=== PATIENT | female | born 1950 | race Caucasian/White ===

== ENCOUNTER 2016-08-18 11:12 | Emergency (ER) | payer MEDICARE, OTHER | END 2016-08-18 12:15 | disposition home or self-care (01) | DX: G51.0 Bell's palsy (principal); I10 Essential (primary) hypertension; E78.00 Pure hypercholesterolemia, unspecified; E11.9 Type 2 diabetes mellitus without complications; Z79.4 Long term (current) use of insulin; Z79.82 Long term (current) use of aspirin ==

== ENCOUNTER 2022-07-27 12:02 | Emergency (ER) | payer MEDICARE, OTHER ==
--- NOTE | 2022-07-27 13:11 | ED Physician Documentation ---
History of Present Illness - Stated complaint Stated Complaint: COUGH/FEVER - Chief complaint Chief Complaint: Resp - Additonal information Additional information: History provided by patient. Reliable historian. 72-year-old female who does have a history of previous myocardial infarction status post 5 stents in February of this year presents the emergency department for evaluation of cough that began yesterday and low-grade temperature elevation. Patient reports a T-max of 98.2 but states that soft fever for her as her temperature typically is 96 degrees. She is denying chest pain or dyspnea. No nausea or vomiting. No leg swelling. She states that she is here simply to have the cough addressed as she had to sleep in the living room last night as the cough kept her up. She is not vaccinated for COVID or the flu. Review of Systems Constitutional: reports: Fever, Fatigue Eyes: reports: Reviewed and negative Ears: reports: Reviewed and negative Nose: reports: Congestion Throat: reports: Reviewed and negative Cardiac: reports: Reviewed and negative Respiratory: reports: Reviewed and negative GI: reports: Reviewed and negative : reports: Reviewed and negative Skin: reports: Reviewed and negative Musculoskeletal: reports: Reviewed and negative Neurologic: reports: Reviewed and negative PD PAST MEDICAL HISTORY - Past Medical History Cardiovascular: Hypertension, High cholesterol Respiratory: None Endocrine/Autoimmune: Type 2 diabetes GI: None : None HEENT: None Psych: Depression Musculoskeletal: Other Derm: None - Past Surgical History Past Surgical History: Yes Ortho: Other HEENT: Tonsil/Adenoidectomy - Present Medications Home Medications: Ambulatory Orders Medication Instructions Recorded Confirmed Aspirin [Alesia Chewable Aspirin] 325 mg PO DAILY 06/23/14 04/20/18 Losartan/Hydrochlorothiazide 1 tab PO DAILY 06/23/14 04/20/18 [Losartan-Hctz 100-12.5 mg Tab] Acyclovir 800 mg PO 5XD 10 Days tablet 08/18/16 04/20/18 Gabapentin 0 mg PO TID 08/18/16 04/20/18 Ibuprofen [Motrin] 600 mg PO BID 08/18/16 04/20/18 Insulin Glargine [Lantus] 18 units DAILY 08/18/16 04/20/18 amLODIPine [Norvasc] 0 mg PO ONCE 08/18/16 04/20/18 FLUoxetine [PROzac] 1 cap PO DAILY 04/20/18 04/20/18 Benzonatate [Tessalon] 200 mg PO TID PRN #20 cap 07/27/22 - Allergies Allergies/Adverse Reactions: Allergies Allergy/AdvReac Type Severity Reaction Status Date / Time Beta-Blockers Allergy Intermediate Respiratory Verified 08/18/16 11:29 (Beta-Adrenergic Bloc diltiazem Allergy Mild Rash Verified 08/18/16 11:29 - Social History Does the pt smoke?: No Smoking Status: Never smoker Does the pt drink ETOH?: Yes Does the pt have substance abuse?: No - Immunizations Immunizations are current?: Yes Immunizations: TDAP current <10years - POLST Patient has POLST: No PD ED PE NORMAL - General General: Alert and oriented X 3, No acute distress, Well developed/nourished - HEENT HEENT: Atraumatic, Ears normal - Neck Neck: Supple, no meningeal sign, No adenopathy - Cardiac Cardiac: RRR, No murmur - Respiratory Respiratory: No respiratory distress, Clear bilaterally - Abdomen Abdomen: Normal bowel sounds, Soft - Back Back: No spinal TTP - Derm Derm: Normal color, No rash - Neuro Neuro: Alert and oriented X 3, 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 parapertussis DNA (PCR) NOT DETECTED Nasal Coronavir 229E PCR NOT DETECTED Nasal Coronavir HKU1 PCR NOT DETECTED Nasal Coronavir NL63 PCR NOT DETECTED Nasal Coronavir OC43 PCR NOT DETECTED Nasal Enterovir/Rhinovir PCR DETECTED A Nasal Influenza B PCR NOT DETECTED Nasal Influenza A PCR NOT DETECTED Nasal Parainfluen 1 PCR NOT DETECTED Nasal Parainfluen 2 PCR NOT DETECTED Nasal Parainfluen 3 PCR NOT DETECTED Nasal Parainfluen 4 PCR NOT DETECTED Nasal RSV (PCR) NOT DETECTED Nasal B.pertussis DNA PCR NOT DETECTED Nasal C.pneumoniae (PCR) NOT DETECTED Herbert Human Metapneumo PCR NOT DETECTED Nasal M.pneumoniae (PCR) NOT DETECTED Nasal SARS-CoV-2 (PCR) NOT DETECTED - Rads (name of study) cxr Radiology: Final report received (Normal 2 view chest x-ray) PD Medical Decision Making - ED course Complexity details: reviewed results, re-evaluated patient, considered differential, d/w patient, d/w family ED course: 72-year-old female presents to the emergency department for evaluation of cough low-grade temperature elevations that began yesterday. She reports she typically runs a low temperature but was found that she was up to 98.2 which she describes as a fever. She has had a productive cough. No chest pain or shortness of air. No nausea or vomiting. No fevers. Does have a history of myocardial infarction status post stent placement x5 in February of this last year. Patient is denying any dyspnea chest pain or chest discomfort therefore EKG and further laboratory testing was deferred On exam she appears well without respiratory distress. Cardiopulmonary auscultation was unremarkable. Room air saturations 96%. My interpretation of the x-ray as well as that of the radiologist is that there is no acute findings to suggest pneumonia, pneumothorax or pleural effusion. Heart size was normal. Respiratory PCR has resulted positive for rhinovirus. The patient's biggest area of concern is that she has a cough which prevented her from sleeping last night. In order to help with the cough I am going to send a prescription for Tessalon Perles to the her preferred pharmacy. We discussed routine care of viral upper respiratory infections as well as emergent return precautions. Departure - Departure Disposition: 01 Home, Self Care Clinical Impression: Rhinovirus infection, Viral URI with cough Condition: Stable Record reviewed to determine appropriate education?: Yes Instructions: ED Viral Syndrome Prescriptions: Benzonatate [Tessalon] 200 mg PO TID PRN #20 cap PRN Reason: Cough Comments: Radha the chest x-ray today is normal and does not show any findings to suggest a pneumonia. Your viral testing is positive for rhinovirus. This is the cause of the common cold. I expect that you will have a cough for the better part of the next week. In order to reduce the severity of the cough I have sent prescription for Tessalon Perles to the [facility] in [place]. Also recommend that you stay well-hydrated. A teaspoon of honey every 4-6 hours can also coat the throat and reduce cough. Please discuss this ED visit with your primary care doctor. Reasons to return to the ER would be worsening cough despite 7 to 10 days of symptoms, development of any fevers after a week of illness, any severe respiratory distress or chest pain.
--- NOTE | 2022-07-27 13:27 | XRAY Report ---
PROCEDURE: Chest 2 View X-Ray INDICATIONS: cough TECHNIQUE: 2 views of the chest were acquired. COMPARISON: 09/08/2015 FINDINGS: Surgical changes and devices: None. Lungs and pleura: No pleural effusions or pneumothorax. Lungs are clear. Mediastinum: Mediastinal contours are normal. Heart size is normal. Bones and chest wall: No suspicious bony abnormalities. Soft tissues appear unremarkable. IMPRESSION: Normal two-view chest x-ray Reviewed by: Serge Charles MD on 07/27/2022 12:25 PM [facility] Approved by: Serge Charles MD on 07/27/2022 12:25 PM [facility] Station ID: [id number]
[2022-07-27 13:43] LABS: B. PARAPERTUSSIS- RESP PCR PAN NOT DETECTED; B. PERTUSSIS- RESP PCR PANEL NOT DETECTED; C. PNEUMONIAE- RESP PCR PANEL NOT DETECTED; CORONAVIRUS 229E-RESP PCR NOT DETECTED; CORONAVIRUS HKU1-RESP PCR NOT DETECTED; CORONAVIRUS NL63-RESP PCR NOT DETECTED; CORONAVIRUS OC43-RESP PCR NOT DETECTED; HUMAN METAPNEUMOVIRUS NOT DETECTED; INFLUENZA A- RESP PCR PANEL NOT DETECTED; M. PNEUMONIAE- RESP PCR PANEL NOT DETECTED; PARAINFLUENZA VIRUS 4 NOT DETECTED; RHINOVIRUS/ENTEROVIRUS DETECTED; RSV- RESP PCR PANEL NOT DETECTED; SARS-CoV-2 -RESP PCR PANEL NOT DETECTED
[2022-07-27 13:44] LABS: INFLUENZA B - RESP PCR PANEL NOT DETECTED; PARAINFLUENZA VIRUS 1 NOT DETECTED; PARAINFLUENZA VIRUS 2 NOT DETECTED; PARAINFLUENZA VIRUS 3 NOT DETECTED
[2022-07-27 14:14] VITALS: BP 158/71
== END 2022-07-27 14:16 | disposition home or self-care (01) ==
LOC: ED 12:02
DX: J06.9 Acute upper respiratory infection, unspecified (principal); B97.89 Other viral agents as the cause of diseases classified elsewhere; Z20.822 Contact with and (suspected) exposure to COVID-19
CPT/HCPCS: 87633; 99284